=== PATIENT | male | born 1965 | race Two or more races ===

== ENCOUNTER 2019-09-01 15:29 | Emergency (ER) | payer OTHER, BC ==
--- NOTE | 2019-09-01 16:12 | EDM.PDOC ---
ED HPI GENERAL MEDICAL PROBLEM - General Source of Information: Reports: Patient, RN, RN Notes Reviewed History Limitations: Reports: No Limitations - History of Present Illness Onset: Today Duration: Constant Location: Reports: Head, Chest, Upper Extremity, Left, Upper Extremity, Right Quality: Reports: Ache Severity: Mild Improves with: Reports: None Worsens with: Reports: None Associated Symptoms: Reports: No Other Symptoms Right Head Pain Score (Numeric/FACES): 8 <Trevor Duarte - Last Filed: 09/01/19 16:05> <Jose Singleton - Last Filed: 09/01/19 19:02> - General Chief Complaint: Head Injury Stated Complaint: HIT HEAD Time Seen by Provider: 09/01/19 16:05 - History of Present Illness INITIAL COMMENTS - FREE TEXT/NARRATIVE: Patient presents to the ER after being trapped under a lift at work when it fell pinning him between the lift and the ground. He has multiple abrasions. Abrasion to the right parietal region of his head, abrasion to right upper chest , left wrist abrasion and right antecubital abrasion. All abrasions are superficial with moderate swelling and bruising. Patient has a headache and rates it at a 6/10. He has chest wall pain in the area of the abrasion and can be reproduced with palpation. He denies SOB, loss of consciousness. (Trevor Duarte) - Related Data Allergies Allergy/AdvReac Type Severity Reaction Status Date / Time No Known Allergies Allergy Verified 09/01/19 15:50 Home Meds: Home Meds Albuterol Sulfate [Albuterol Sulfate Hfa] 8.5 gm IH 09/01/19 [History] Past Medical History HEENT History: Reports: Impaired Vision Cardiovascular History: Reports: None Respiratory History: Reports: Bronchitis, Recurrent Gastrointestinal History: Reports: None Genitourinary History: Reports: None Musculoskeletal History: Reports: Fracture Other Musculoskeletal History: nose, Left pinkie, middle digit, RIGHT ankle Neurological History: Reports: None Psychiatric History: Reports: None Endocrine/Metabolic History: Reports: None Hematologic History: Reports: None Immunologic History: Reports: None Oncologic (Cancer) History: Reports: None Dermatologic History: Reports: None - Infectious Disease History Infectious Disease History: Reports: Hepatitis C - Past Surgical History Head Surgeries/Procedures: Reports: None HEENT Surgical History: Reports: None Cardiovascular Surgical History: Reports: None Respiratory Surgical History: Reports: None GI Surgical History: Reports: None Neurological Surgical History: Reports: None Musculoskeletal Surgical History: Reports: None <Trevor Duarte - Last Filed: 09/01/19 16:05> Social & Family History - Family History Family Medical History: Noncontributory - Tobacco Use Smoking Status *Q: Former Smoker Packs/Tins Daily: 1 Used Tobacco, but Quit: Yes Month/Year Tobacco Last Used: 04/2019 - Caffeine Use Caffeine Use: Reports: Coffee - Recreational Drug Use Recreational Drug Use: Yes Recreational Drug Type: Reports: Marijuana/Hashish Recreational Drug Use Frequency: Rarely <Trevor Duarte - Last Filed: 09/01/19 16:05> ED ROS GENERAL - Review of Systems Review Of Systems: Comprehensive ROS is negative, except as noted in HPI. <Trevor Duarte - Last Filed: 09/01/19 16:05> ED EXAM, HEAD INJURY - Physical Exam Exam Limited By: No Limitations General Appearance: Alert, WD/WN, No Apparent Distress Head: Scalp Swelling, Scalp Abrasions (right parietal region), Scalp Ecchymosis , Scalp Hematoma, Scalp Tenderness. No: Facial Abrasions, Facial Ecchymosis, Facial Lacerations Eyes: Bilateral Eye: EOMI, Normal Inspection, PERRL Ears: Normal External Exam, Normal Canal, Hearing Grossly Normal, Normal TMs Nose: Normal Inspection, Normal Mucousa, No Blood Throat/Mouth: Normal Inspection, Normal Lips, Normal Teeth, Normal Gums, Normal Oropharynx, Normal Voice, No Airway Compromise Neck: Non-Tender, Full Range of Motion, Normal Alignment, Normal Inspection Respiratory: No Respiratory Distress, Lungs Clear, Normal Breath Sounds, No Accessory Muscle Use, Chest Non-Tender Cardiovascular: Normal Peripheral Pulses, Regular Rate, Rhythm, No Edema, No Gallop, No JVD, No Murmur, No Rub GI/Abdominal Exam: Normal Bowel Sounds, Soft, Non-Tender, No Organomegaly, No Distention, No Abnormal Bruit, No Mass Back Exam: Full Range of Motion, Normal Inspection, NT Extremities: Normal Inspection, Normal Range of Motion, Non-Tender, No Pedal Edema, Normal Capillary Refill Neurologic: sole cutter II-XII nml As Tested, No Motor/Sensory Deficits, Alert, Normal Mood/Affect, Oriented x 3 Skin: Warm/Dry, Ecchymosis (to areas of abrasions) <Trevor Duarte - Last Filed: 09/01/19 16:05> - Physical Exam Exam: See Below <Jose Singleton - Last Filed: 09/01/19 19:02> - Vital Signs Last Recorded V/S: Last Vital Signs Temp 35.5 C L 09/01/19 15:41 Pulse 71 09/01/19 15:41 Resp 18 09/01/19 15:41 BP 143/88 H 09/01/19 15:41 Pulse Ox 100 09/01/19 15:41 - Orders/Labs/Meds Orders: Active Orders 24 hr Category Date Time Status Vaccines to be Administered [RC] PER UNIT ROUTINE Care 09/01/19 18:40 Inactive Chest w Cont [CT] Urgent Exams 09/01/19 16:53 Ordered Head w Cont [CT] Urgent Exams 09/01/19 16:53 Ordered Meds: Medications Discontinued Medications Generic Name Dose Route Start Last Admin Trade Name Faye PRN Reason Stop Dose Admin Diphtheria/Tetanus/Acell Pertussis 0.5 ml 09/01/19 18:40 Adacel IM 09/01/19 18:41 .ONCE ONE Iopamidol 100 ml 09/01/19 17:00 09/01/19 18:19 Isovue-300 (61%) IVPUSH 09/01/19 17:01 100 ml ONETIME ONE Administration Departure <Trevor Duarte - Last Filed: 09/01/19 16:05> - Departure Time of Disposition: 19:00 Condition: Fair - Discharge Information *PRESCRIPTION DRUG MONITORING PROGRAM REVIEWED*: Not Applicable *COPY OF PRESCRIPTION DRUG MONITORING REPORT IN PATIENT IAM: Not Applicable <Jose Singleton - Last Filed: 09/01/19 19:02> - Departure Disposition: Home, Self-Care 01 Clinical Impression: Chest wall contusion Qualifiers: Encounter type: initial encounter Laterality: right Qualified Code(s): S20.211A - Contusion of right front wall of thorax, initial encounter Head contusion Qualifiers: Encounter type: initial encounter Contusion of head detail: scalp Qualified Code(s): S00.03XA - Contusion of scalp, initial encounter - Discharge Information Instructions: Chest Contusion, Adult, [id number], Facial or Scalp Contusion, [id number] Forms: ED Department Discharge Care Plan Goals: The patient was advised of the examination and CT results during the visit. The patient was given an injection of Adacel while in the ED. The patient was encouraged to rest and ice the areas of concern. If the patient has any additional symptoms or concerns, the patient should either return to the emergency department or visit his primary care facility. Sepsis Event Note - Evaluation Sepsis Screening Result: No Definite Risk - Focused Exam Date Exam was Performed: 09/01/19 Time Exam was Performed: 16:05 <Trevor Duarte - Last Filed: 09/01/19 16:05> - Focused Exam Date Exam was Performed: 09/01/19 Time Exam was Performed: 19:00 <Jose Singleton - Last Filed: 09/01/19 19:02> - Focused Exam Vital Signs: Vital Signs Temp Pulse Resp BP Pulse Ox 09/01/19 15:41 35.5 C L 71 18 143/88 H 100 - My Orders Last 24 Hours: My Active Orders 09/01/19 18:40 Vaccines to be Administered [RC] PER UNIT ROUTINE - Assessment/Plan Last 24 Hours: My Active Orders 09/01/19 18:40 Vaccines to be Administered [RC] PER UNIT ROUTINE
[2019-09-01] MEDS ORDERED: Iopamidol 612 MG/ML 100 ML Bottle IVPUSH ONE (17:00)
[2019-09-01] MEDS ORDERED: Diphtheria,Pertussis(Acell),Tetanus Vaccine 0.5 ML SDV IM ONE (18:40)
== END 2019-09-01 19:09 | disposition home or self-care (01) ==
LOC: DL.ED 15:29
DX: S20.211A Contusion of right front wall of thorax, initial encounter (principal); S00.03XA Contusion of scalp, initial encounter; Z79.899 Other long term (current) drug therapy; Z87.891 Personal history of nicotine dependence; W23.0XXA Caught, crushed, jammed, or pinched between moving objects, initial encounter; Y99.0 Civilian activity done for income or pay
CPT/HCPCS: 70460; 71260; 99283; Q9967; 90471

== ENCOUNTER 2025-01-05 06:17 | Day surgery (SDC) | payer BC ==
[2025-01-05] MEDS ORDERED: Lactated Ringers 750 ML IV ONE (06:18)
[2025-01-05] MEDS ORDERED: Lidocaine 2% 20 ML MDV NERVRT ONE (06:18)
[2025-01-05] MEDS ORDERED: Dextrose 5%-0.45% NaCl 1,000 ML IV ONE (06:18)
[2025-01-05] MEDS ORDERED: Propofol 200 MG/20 ML SDV IV ONE (06:18)
[2025-01-05] MEDS ORDERED: Dextrose 5%-0.45% NaCl 1,000 ML IV SCH (06:30)
[2025-01-05] MEDS: Lactated Ringers 1,000 ML IV SCH (06:46)
[2025-01-05] MEDS ORDERED: Propofol 200 MG/20 ML SDV ONE (07:36)
== END 2025-01-05 09:09 | disposition home or self-care (01) ==
LOC: DL.ENDO 06:17
PROVIDERS: ATTEND Internal Medicine Gastroenterology
DX: Z12.11 Encounter for screening for malignant neoplasm of colon (principal); D12.4 Benign neoplasm of descending colon; D12.2 Benign neoplasm of ascending colon; I10 Essential (primary) hypertension; E66.9 Obesity, unspecified; K64.8 Other hemorrhoids; F17.200 Nicotine dependence, unspecified, uncomplicated
CPT/HCPCS: 45385; J2003; J2704; J7120; S5010; 00811